=== PATIENT | female | born 1930 | race Caucasian/White ===

== ENCOUNTER 2021-12-21 16:41 | Inpatient (IN) | payer MEDICARE ==
[2021-12-21 17:23] LABS: #Basophils 0.1 10x3/uL (0.0-0.2); #Eosinphils 0.1 10x3/uL (0.0-0.5); #Monocytes 0.8 10x3/uL (0.0-1.1); #Neutrophils 6.4 10x3/uL (1.5-8.4); %Basophils 0.8 % (0.0-2.0); %Eosinophils 1.1 % (0.0-6.0); %Lymphocytes 23.5 % (18.0-47.0); %Monocytes 8.5 % (0.0-10.0); %Neutrophils 65.3 % (40.0-75.0); Hemoglobin 10.3 g/dL (12.0-15.5); Mean Corpuscular HGB CONC 35.8 g/dL (32.0-36.0); Mean Corpuscular Hemoglobin 32.8 pg (27.0-33.0); Mean Corpuscular Volume 91.7 fl (81.6-98.3); Mean Platelet Volume 8.4 fl (7.4-10.4); Platelet Count 341 10x3/uL (150-450); RBC Distribution Width 13.8 % (11.5-14.5); Red Blood Cell (RBC) Count 3.14 10x6/uL (3.90-5.03); White Blood Cell (WBC) Count 9.8 10x3/uL (3.5-10.5)
[2021-12-21 17:40] LABS: Bilirubin Neg (Negative); Blood, Urine Negative (Negative); Clarity Clear (Clear); Glucose, Urine (Dipstick) Normal (Negative); Ketone, Urine Negative (Negative); Leukocyte Negative (Negative); Nitrite Negative (Negative); Protein, Urine (Dipstick) Negative (Neg-Trace); Urobilinogen Normal mg/dL (Less than 2)
[2021-12-21 18:21] LABS: ALT (SGPT) 19 U/L (8-55); AST (SGOT) 32 U/L (5-34); Albumin 4.1 g/dL (3.4-4.8); Alkaline Phosphatase 63 U/L (40-110); Anion Gap 20 mmol/L (10-20); BUN (Urea Nitrogen) 49 mg/dL (9.8-20.1); Bilirubin, Total 1.2 mg/dL (0.2-1.2); Calc. Creatinine Clearance 0 mL/min (70-130); Calcium 8.9 mg/dL (7.8-10.44); Carbon Dioxide 14 mmol/L (23-31); Chloride 89 mmol/L (98-107); Globulin 2.9 g/dL (2.4-3.5); Glucose 184 mg/dL (83-110); Lipase 67 U/L (8-78); Magnesium 1.7 mg/dL (1.6-2.6); Potassium 6.4 mmol/L (3.5-5.1)
[2021-12-21 18:22] LABS: Sodium 117 mmol/L (136-145)
[2021-12-21] MEDS ORDERED: Calcium Gluc 4.6 MEQ/10 ML (100 MG/ML) ONE (18:51)
[2021-12-21] MEDS ORDERED: Calcium Carbonate 500 MG ChewTAB PO PRN (19:18)
[2021-12-21] MEDS ORDERED: Acetaminophen 325 MG TAB PO PRN (19:18)
[2021-12-21] MEDS ORDERED: Ondansetron PF 4 MG/2 ML Vial IVP PRN (19:18)
[2021-12-21] MEDS ORDERED: Guaifenesin DM 100-10/5 ML UDCUP PO PRN (19:18)
[2021-12-21] MEDS ORDERED: Dextrose 50% Abboject 50 ML SYRINGE SLOW IVP PRN (19:18)
[2021-12-21] MEDS ORDERED: Senokot S 8.6-50 MG TAB PO PRN (19:18)
[2021-12-21] MEDS ORDERED: Dextrose 5% in Water 1,000 ML IV PRN (19:18)
[2021-12-21] MEDS ORDERED: Insulin Regular 300 UNITS/3 ML VIAL ONE (19:36)
[2021-12-21] MEDS ORDERED: Dextrose 50% Abboject 50 ML SYRINGE ONE (19:36)
[2021-12-21] MEDS ORDERED: Albuterol Sulfate 2.5 mg/3 ml Neb ONE ×2 (19:54→19:55)
[2021-12-21] MEDS ORDERED: Sodium Chloride 0.9% 250 ML IV SCH (20:00)
[2021-12-21 20:12] LABS: SARS-CoV-2 NAA Rapid Test Not Detected (NotDetected)
[2021-12-21] MEDS ORDERED: Famotidine/PF 20 mg/2ml Vial SLOW IVP SCH (21:00)
[2021-12-21] MEDS ORDERED: PRAVASTATIN SODIUM 40 MG PO SCH (21:00)
[2021-12-21] MEDS ORDERED: Calcium Gluconate 4.6 MEQ in Sodium Chloride 0.9% 100 ML IVPB SCH (21:15)
[2021-12-21 21:35] VITALS: BMI 33.1
[2021-12-21] MEDS: hydrALAZINE 10 MG TAB PO SCH (21:57)
[2021-12-21 23:41] LABS: Anion Gap 17 mmol/L (10-20); BUN (Urea Nitrogen) 43 mg/dL (9.8-20.1); Calc. Creatinine Clearance 31 mL/min (70-130); Carbon Dioxide 19 mmol/L (23-31); Chloride 94 mmol/L (98-107); Glucose 178 mg/dL (83-110); Potassium 4.9 mmol/L (3.5-5.1); Sodium 125 mmol/L (136-145)
[2021-12-21] MEDS: HumaLOG 300 UNITS/3 ML VIAL SC PRN (23:45)
[2021-12-22] MEDS: Levothyroxine Sodium 50 MCG TAB PO SCH (06:05)
[2021-12-22 06:14] LABS: Anion Gap 21 mmol/L (10-20); BUN (Urea Nitrogen) 36 mg/dL (9.8-20.1); Calc. Creatinine Clearance 40 mL/min (70-130); Calcium 9.8 mg/dL (7.8-10.44); Carbon Dioxide 17 mmol/L (23-31); Chloride 98 mmol/L (98-107); Glucose 109 mg/dL (83-110); Potassium 5.1 mmol/L (3.5-5.1); Sodium 131 mmol/L (136-145)
[2021-12-22] MEDS: Acyclovir 200 mg Capsule PO SCH (08:43)
[2021-12-22] MEDS: hydrALAZINE 10 MG TAB PO SCH ×3 (08:43→21:15)
[2021-12-22] MEDS: Aspirin 81 mg Enteric Coated Tablet PO SCH (08:43)
[2021-12-22] MEDS: Amlodipine 10 MG TAB PO SCH (08:44)
[2021-12-22] MEDS: Glimepiride 2 MG TAB PO SCH (08:50)
[2021-12-22] MEDS: HumaLOG 300 UNITS/3 ML VIAL SC PRN (08:51)
[2021-12-22] MEDS ORDERED: Enoxaparin Sodium 30 MG/0.3 ML SYRINGE SC SCH (09:00)
[2021-12-22] MEDS ORDERED: Famotidine/PF 20 mg/2ml Vial SLOW IVP SCH (21:00)
[2021-12-23 05:45] LABS: Anion Gap 15 mmol/L (10-20); BUN (Urea Nitrogen) 28 mg/dL (9.8-20.1); Calc. Creatinine Clearance 46 mL/min (70-130); Calcium 9.3 mg/dL (7.8-10.44); Carbon Dioxide 22 mmol/L (23-31); Chloride 100 mmol/L (98-107); Glucose 111 mg/dL (83-110); Potassium 4.6 mmol/L (3.5-5.1); Sodium 132 mmol/L (136-145)
[2021-12-23] MEDS: Levothyroxine Sodium 50 MCG TAB PO SCH (06:03)
[2021-12-23 06:10] LABS: #Basophils 0.1 10x3/uL (0.0-0.2); #Eosinphils 0.4 10x3/uL (0.0-0.5); #Monocytes 0.9 10x3/uL (0.0-1.1); %Basophils 0.9 % (0.0-2.0); %Eosinophils 4.7 % (0.0-6.0); %Lymphocytes 33.7 % (18.0-47.0); %Monocytes 11.2 % (0.0-10.0); Hemoglobin 10.2 g/dL (12.0-15.5); Mean Corpuscular HGB CONC 34.5 g/dL (32.0-36.0); Mean Corpuscular Volume 95.8 fl (81.6-98.3); Mean Platelet Volume 8.9 fl (7.4-10.4); Platelet Count 376 10x3/uL (150-450); RBC Distribution Width 14.2 % (11.5-14.5); Red Blood Cell (RBC) Count 3.09 10x6/uL (3.90-5.03); White Blood Cell (WBC) Count 8.1 10x3/uL (3.5-10.5)
[2021-12-23] MEDS ORDERED: Enoxaparin Sodium 40 MG/0.4 ML SYRINGE SC SCH (09:00)
[2021-12-23] MEDS: Aspirin 81 mg Enteric Coated Tablet PO SCH (09:37)
[2021-12-23] MEDS: hydrALAZINE 10 MG TAB PO SCH (09:37)
[2021-12-23] MEDS: Amlodipine 10 MG TAB PO SCH (09:37)
[2021-12-23] MEDS: Glimepiride 2 MG TAB PO SCH (09:38)
[2021-12-23] MEDS: Acyclovir 200 mg Capsule PO SCH (09:56)
[2021-12-23 11:43] VITALS: BP 130/62; TEMP 97.6
[2021-12-23] MEDS ORDERED: hydrALAZINE 25 MG TAB PO SCH (15:00)
== END 2021-12-23 13:00 | disposition home health service (06) | DRG 683 ==
LOC: CSHERS 16:41 → CSHIMCU 20:56 → CSHTELE 12-22 17:16
PROVIDERS: ADMIT Student in an Organized Health Care Education/Training Program; ATTEND Emergency Medicine
DX: N17.9 Acute kidney failure, unspecified (principal); E87.1 Hypo-osmolality and hyponatremia; E78.5 Hyperlipidemia, unspecified; E03.9 Hypothyroidism, unspecified; D63.1 Anemia in chronic kidney disease; N18.30 Chronic kidney disease, stage 3 unspecified; I12.9 Hypertensive chronic kidney disease with stage 1 through stage 4 chronic kidney disease, or unspecified chronic kidney disease; E87.5 Hyperkalemia; E11.65 Type 2 diabetes mellitus with hyperglycemia; E11.22 Type 2 diabetes mellitus with diabetic chronic kidney disease; R53.81 Other malaise; Z20.822 Contact with and (suspected) exposure to COVID-19; Z91.040 Latex allergy status; Z88.8 Allergy status to other drugs, medicaments and biological substances; Z79.899 Other long term (current) drug therapy; Z79.82 Long term (current) use of aspirin; Z85.3 Personal history of malignant neoplasm of breast; Z90.49 Acquired absence of other specified parts of digestive tract
CPT/HCPCS: 36415; 36416; 51701; 71045; 80048; 80053; 81003; 82533; 83690; 83735; 84443; 84484; 85025; 93005; 93010; 94640; 96374; 96375; J0610; J1650; J1815; J3490; J7030; J7611; J7999; S0028; U0002